=== PATIENT | male | born 1975 | race Two or more races ===

== ENCOUNTER 2024-08-04 06:10 | Emergency (ER) | payer OTHER ==
[~2024-08-04] VITALS: Ht 175.3 cm; Wt 105.5 kg
--- NOTE | 2024-08-04 06:49 | ED.PDOC ---
History of Present Illness HPI Comments 49 year old male presents to the ED with a chief complaint of headache onset 5 days. Patient states he began experiencing LT sided headache 5 days ago and has been persistent since. Patient has taken Tylenol with no relief of symptoms. Describes pain as a "muscle pulling", shooting pain. He also noticed LT arm is weak. Saw PCP yesterday (08/03/24), was told to go to ED due to symptoms. Denies any PMHx as well as chest pain, shortness of breath, numbness/tingling, nausea, vomiting, diarrhea, fall, injury. No other symptoms or modifying factors present at this time. Chief Complaint: Headache Time Seen by MD: 06:34 Reviewed Notes: Medications, Allergies Allergies: Coded Allergies: NO KNOWN ALLERGIES (Unverified , 08/04/24) Information Source: Patient Mode of Arrival: Ambulatory Severity: Moderate Timing: Days Duration: Since onset Prehospital treatment: Pain Meds Past Medical History PAST MEDICAL HISTORY: Denies Surgical History: Denies all surgeries Family History Family History: Reviewed,noncontributory to illness, No family hx of Cancer, No family hx of DM, No family hx of Heart keshawn, No family hx of HTN, No family hx ofKidney keshawn, No family hx of Liver keshawn, No family hx of Lung keshawn, No family hx of Stroke Social History Smoker: Non-Smoker Alcohol: Denies ETOH Use Drugs: Denies Drug Use Lives In: Home Constitutional: denies: chills, diaphoresis, fatigue, fever, malaise, sweats, weakness, others EENTM: denies: blurred vision, double vision, ear bleeding, ear discharge, ear drainage, ear pain, ear ringing, eye pain, eye redness, hearing loss, mouth pain, mouth swelling, nasal discharge, nose bleeding, nose congestion, nose pain, photophobia, tearing, throat pain, throat swelling, voice changes, others Respiratory: denies: cough, hemoptysis, orthopnea, SOB at rest, shortness of breath, SOB with excertion, stridor, wheezing, others Cardiovascular: denies: chest pain, dizzy spells, diaphoresis, Dyspnea on exertion, edema, irregular heart beat, left arm pain, lightheadedness, palpitations, PND, syncope, others Gastrointestinal: denies: abdomen distended, abdominal pain, blood streaked bowels, constipated, diarrhea, dysphagia, difficulty swallowing, hematemesis, melena, nausea, poor appetite, poor fluid intake, rectal bleeding, rectal pain, vomiting, others Genitourinary: denies: burning, dysuria, flank pain, frequency, hematuria, incontinence, penile discharge, penile sore, pain, testicle pain, testicle swelling, urgency, others Neurological: reports: headache; denies: dizziness, fainting, left sided numbness, left sided weakness, numbness, paresthesia, pre-existing deficit, right sided numbness, right sided weakness, seizure, speech problems, tingling, tremors, weakness, others Musculoskeletal: denies: back pain, gout, joint pain, joint swelling, muscle pain, muscle stiffness, neck pain, others Integumetry: denies: bruises, change in color, change in hair/nails, dryness, laceration, lesions, lumps, rash, wounds, others Allergic/Immunocompromised: denies: Difficulty Healing, Frequent Infections, Hives, Itching, others Hematologic/Lymphatic: denies: anemia, blood clots, easy bleeding, easy bruising, swollen glands, others Endocrine: denies: excessive hunger, excessive sweating, excessive thirst, excessive urination, flushing, intolerance to cold, intolerance to heat, unexplained weight gain, unexplained weight loss, others Psychiatric: denies: anxiety, bipolar disorder, depression, hopeless, panic disorder, schizophrenia, sleepless, suicidal, others All Other Systems: Reviewed and Negative Physical Exam General Appearance: No Apparent Distress, Normal HEENT: Normal ENT Inspection, Pharynx Normal, TMs Normal Neck: Full Range of Motion, Non-Tender, Normal, Normal Inspection Respiratory: Chest Non-Tender, Lungs Clear, No Accessory Muscle Use, No Respiratory Distress, Normal Breath Sounds Cardiovascular: No Edema, No JVD, No Murmur, No Gallop, Normal Peripheral Pulses, Regular Rate/Rhythm Breast Exam: Deferred Gastrointestinal: No Organomegaly, Non Tender, No Pulsatile Mass, Normal Bowel Sounds, Soft Genitalia: Deferred Pelvic: Deferred Rectal: Deferred Extremities: No calf tenderness, Normal capillary refill, Normal inspection, Normal range of motion, Non-tender, No pedal edema Musculoskeletal : Apperance: Normal Neurologic: Alert, 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 Was a procedure done?: No Differential Dx Considerations may include: CVA, hypertensive emergency, atypical migraine, X-Ray, Labs, Meds, VS Vital Signs Date Time Temp Pulse Resp B/P (MAP) Pulse Ox O2 Delivery O2 Flow Rate FiO2 08/04/24 07:19 98.7 75 20 146/100 (115) 98 98.7 08/04/24 07:15 85 20 99 Room Air* 0 21 08/04/24 06:40 98.1 82 20 165/114 (131) 96 Lab Test 08/04/24 06:54 08/04/24 06:47 Range/Units White Blood Count 4.4 4.4-10.8 10^3/uL Red Blood Count 4.58 4.5-5.90 10^6/uL Hemoglobin 14.2 13.5-17.5 g/dL Hematocrit 40.4 L 41.0-53.0 % Mean Corpuscular Volume 88.3 80.0-100.0 fL Mean Corpuscular Hemoglobin 31.0 28.0-32.0 pg Mean Corpuscular Hemoglobin Concent 35.1 32.0-36.0 g/dL Red Cell Distribution Width 13.9 11.8-14.3 % Platelet Count 191 140-450 10^3/uL Mean Platelet Volume 7.6 6.9-10.8 fL Neutrophils (%) (Auto) 43.6 37.0-80.0 % Lymphocytes (%) (Auto) 45.1 10.0-50.0 % Monocytes (%) (Auto) 9.5 0.0-12.0 % Eosinophils (%) (Auto) 0.9 0.0-7.0 % Basophils (%) (Auto) 0.9 0.0-2.0 % Neutrophils # (Auto) 1.9 1.6-8.6 10 ^3/uL Lymphocytes # (Auto) 2.0 0.4-5.4 10 ^3/uL Monocytes # (Auto) 0.4 0-1.3 10 ^3/uL Eosinophils # (Auto) 0 0-0.8 10 ^3/uL Basophils # (Auto) 0 0-0.2 10 ^3/uL Nucleated Red Blood Cells 0.1 % Sodium Level 140 136-145 mmol/L Potassium Level 3.5 3.5-5.1 mmol/L Chloride Level 107 98-107 mmol/L Carbon Dioxide Level 26 20-31 mmol/L Anion Gap 7 5-15 Blood Urea Nitrogen 12 9-23 mg/dL Creatinine 1.12 0.700-1.30 mg/dL Glomerular Filtration Rate Calc 81 >90 mL/min BUN/Creatinine Ratio 10.7 10.0-20.0 Serum Glucose 118 H 74-106 mg/dL Calcium Level 9.3 8.7-10.4 mg/dL Troponin I High Sensitivity < 3 L </=54 ng/L B-Type Natriuretic Peptide 22.99 0-100 pg/mL Urine Color Pending Urine Clarity Pending Urine pH Pending Urine Specific [place] Pending Urine Protein Pending Urine Ketones Pending Urine Blood Pending Urine Nitrite Pending Urine Bilirubin Pending Urine Urobilinogen Pending Urine Leukocyte Esterase Pending Urine RBC Pending Urine Microscopic WBC Pending Urine Squamous Epithelial Cells Pending Urine Bacteria Pending Urine Glucose Pending Urine Opiates Screen Pending Urine Fentanyl Screen Pending Urine Barbiturates Screen Pending Urine Phencyclidine Screen Pending Urine Amphetamines Screen Pending Urine Benzodiazepines Screen Pending Urine Cocaine Screen Pending Urine Cannabinoids Screen Pending Current Medications Medications (Trade) Dose Ordered Sig/Tamera Route Start Time Stop Time Status Last Admin Sodium Chloride 1,000 ml @ 1,000 mls/hr Q1H ONCE IV 08/04/24 06:45 08/04/24 07:44 DC 08/04/24 07:16 Metoclopramide HCl (Reglan Injection) 10 mg ONCE ONCE IV 08/04/24 06:45 08/04/24 06:46 DC 08/04/24 07:19 Acetaminophen (Tylenol Tablet) 650 mg ONCE ONCE PO 08/04/24 06:45 08/04/24 06:46 DC 08/04/24 07:[address] [address] Ph: [phone] DIAGNOSTIC IMAGING Diagnostic Imaging Report : [id number] Signed PATIENT: ADRIAN ELENA ACCT: [id number] UNIT: [id number] : 1975 LOC: ER ROOM / BED: / AGE / SEX: 49 / M ADM STATUS: REG ER SERVICE 7 ORDERING PHYSICIAN: DANELLE PAULA MD PROCEDURE(s): CXRP - CHEST PORTABLE REASON: headache, left arm weakness ORDER NUMBER(s): [id number], ACCESSION NUMBER(s): [id number] CLINICAL INFORMATION: 49 years old, Male; headache, left arm weakness. TECHNIQUE: Single AP portable chest radiograph was obtained. COMPARISON: None FINDINGS: Lungs: Mild perihilar interstitial opacities no focal consolidation. Cardiac: Heart size is within normal limits. Pulmonary vasculature: Prominence of the pulmonary vasculature. Mediastinum/renetta: Unremarkable. Bones: No acute osseous abnormality identified. Other: No other significant findings. IMPRESSION: Prominence of the pulmonary vasculature and mild perihilar interstitial opacities, may be due to pulmonary vascular congestion in the appropriate clinical setting. ATED BY: VINOD MACIAS DO DICTATED DATE/TIME: 08/04/24737 SIGNED BY: VINOD MACIAS DO SIGNED DATE/TIME: 08/04/24737 CC: [place] [id number] Ph: [phone] DIAGNOSTIC IMAGING Diagnostic Imaging Report : [id number] Signed PATIENT: ADRIAN ELENA ACCT: [id number] UNIT: [id number] : 1975 LOC: ER ROOM / BED: / AGE / SEX: 49 / M ADM STATUS: REG ER SERVICE 7 ORDERING PHYSICIAN: DANELLE PAULA MD PROCEDURE(s): HWOCT - HEAD WITHOUT CONTRAST REASON: headache, left arm weakness ORDER NUMBER(s): [id number], ACCESSION NUMBER(s): [id number] CLINICAL INFORMATION: 49 years old, Male; headache, left arm weakness. TECHNIQUE: Axial imaging was obtained through the brain without contrast. Coronal and sagittal reformatted images were obtained, reviewed, and stored. Images were reviewed in brain and bone windows. All CT scans at this medical facility are performed using dose modulation techniques as appropriate to a performed exam including the following: Automated exposure control was utilized; adjustment of the MA and/or KV according to patient size; and use of iterative reconstruction technique. CTDIvol = 67.64 mGy DLP = 1196.13 mGy-cm COMPARISON: None FINDINGS: There is no acute intracranial hemorrhage. No mass effect or midline shift. The ventricles and sulci are within normal limits in size for age. Basal cisterns are patent. The calvarium is unremarkable. [id number] mucosal thickening of the paranasal sinuses IMPRESSION: No CT evidence of acute intracranial abnormality. ATED BY: VINOD MACIAS DO DICTATED DATE/TIME: 08/04/24747 SIGNED BY: VINOD MACIAS DO SIGNED DATE/TIME: 08/04/24747 CC: Time of 1ST Reevaluation: 07:04 Reevaluation 1ST: Unchanged Patient Education/Counseling: Diagnosis, Treatment, Prognosis Family Education/Counseling: No Family Present Additional Information The following tests were ordered, and results were reviewed by me: BNP, BMP, CBC, DRUG SCREEN, TROP, UA, XY CHEST, CT HEAD WITHOUT CONTRAST,EKG I reviewed and agreed with the following test results read by other providers: XY CHEST, CT HEAD WITHOUT CONTRAST. I discussed treatment and results with medical personnel and: patient Departure 1 Departure Time of Disposition: 08:42 (Patient presented with hypertension and symptoms concerning for hypertensive emergency. Patient is receiving iv blood pressure medications requiring intensive monitoring. Data: 1. I ordered and reviewed the result of at least 3 labs including a CBC, BMP, and Urinalysis. 2. I ind ependently interpreted the following tests: CT Brain: Which appears benign. EKG which is Normal Sinus RhythmRisk:This patient has a high risk of morbidity due to further diagnostic testing or treatment and may suffer from an acute cardiac disorder. Workup reveals hypertensive emergency and patient should be admitted for further workup. and possible expert consultation. ) Impression: Primary Impression: Hypertensive emergency Additional Impression: Migraine Qualified Codes: G43.119 - Migraine with aura, intractable, without status migrainosus Disposition: ADMITTED INPATIENT Admit to: Med Surg Condition: Serious Critical Care Note Critical Care Time?: Yes Critical care comment: Hypertensive emergency Authorized and Performed by: Danelle Paula MD Total critical care time: Approximately 38 minutes Due to a high probability of clinically significant, life threatening deterioration, the patient required my highest level of preparedness to intervene emergently and I personally spent this critical care time directly and personally managing the patient. This critical care time included obtaining a history; examining the patient; pulse oximetry; ordering and review of studies; arranging urgent treatment with development of a management plan; evaluation of patient's response to treatment; frequent reassessment; and, discussions with other providers. This critical care time was performed to assess and manage the high probability of imminent, life-threatening deterioration that could result in multi-organ failure. It was exclusive of separately billable procedures and treating other patients and teaching time. Please see my other sections and the rest of the note for further information on patient assessment and treatment. Stability Stability form required: No I personally scribed for DANELLE PAULA MD ([email or web address]) on 08/04/24 at 06:49. Electronically submitted by Nehal Baer ([email or web address]). I personally scribed for DANELLE PAULA MD ([email or web address]) on 08/04/24 at 06:52. Electronically submitted by Nehal Baer ([email or web address]). I personally scribed for DANELLE PAULA MD ([email or web address]) on 08/04/24 at 08:11. Electronically submitted by Nehal Baer ([email or web address]). DANELLE PAULA MD Aug 04, 2024 06:49
[2024-08-04 07:15] VITALS: PULSE 85; RESP 20; O2SAT 99
[2024-08-04] MEDS: SODIUM CHLORIDE 0.9% 1,000 ML IV ONE (07:16)
[2024-08-04 07:18] LABS: Chloride 107 mmol/L (98-107); Sodium 140 mmol/L (136-145)
[2024-08-04 07:19] LABS: Anion Gap 7 (5-15); Basophils # (auto) 0 10 ^3/uL (0-0.2); Basophils % (auto) 0.9 % (0.0-2.0); Calcium 9.3 mg/dL (8.7-10.4); Carbon Dioxide 26 mmol/L (20-31); Eosinophils # (auto) 0 10 ^3/uL (0-0.8); Eosinophils % (auto) 0.9 % (0.0-7.0); Hematocrit 40.4 % (41.0-53.0); Hemoglobin 14.2 g/dL (13.5-17.5); Lymphocytes % (auto) 45.1 % (10.0-50.0); Mean Corpuscular Hgb Conc. 35.1 g/dL (32.0-36.0); Mean Corpuscular Volume 88.3 fL (80.0-100.0); Monocytes # (auto) 0.4 10 ^3/uL (0-1.3); Monocytes % (auto) 9.5 % (0.0-12.0); Neutrophils # (auto) 1.9 10 ^3/uL (1.6-8.6); Neutrophils % (auto) 43.6 % (37.0-80.0); Nucleated Red Blood Cells % 0.1 %; Platelet Count (auto) 191 10^3/uL (140-450); Red Blood Cells 4.58 10^6/uL (4.5-5.90); Red Cell Distribution Width 13.9 % (11.8-14.3); White Blood Cell 4.4 10^3/uL (4.4-10.8)
[2024-08-04] MEDS: ACETAMINOPHEN 325 MG TAB PO ONE (07:19)
[2024-08-04] MEDS: METOCLOPRAMIDE HCL 5MG/ml INJ 2ml VIAL IV ONE (07:19)
[2024-08-04 07:22] LABS: Potassium 3.5 mmol/L (3.5-5.1)
[2024-08-04 07:24] LABS: Glucose 118 mg/dL (74-106)
[2024-08-04 07:29] LABS: BUN/Creatinine Ratio 10.7 (10.0-20.0); Blood Urea Nitrogen 12 mg/dL (9-23)
--- NOTE | 2024-08-04 07:41 | DVH ---
CLINICAL INFORMATION: 49 years old, Male; headache, left arm weakness. TECHNIQUE: Single AP portable chest radiograph was obtained. COMPARISON: None FINDINGS: Lungs: Mild perihilar interstitial opacities no focal consolidation. Cardiac: Heart size is within normal limits. Pulmonary vasculature: Prominence of the pulmonary vasculature. Mediastinum/renetta: Unremarkable. Bones: No acute osseous abnormality identified. Other: No other significant findings. IMPRESSION: Prominence of the pulmonary vasculature and mild perihilar interstitial opacities, may be due to pulm onary vascular congestion in the appropriate clinical setting.
--- NOTE | 2024-08-04 07:51 | DVH ---
CLINICAL INFORMATION: 49 years old, Male; headache, left arm weakness. TECHNIQUE: Axial imaging was obtained through the brain without contrast. Coronal and sagittal reform atted images were obtained, reviewed, and stored. Images were reviewed in brain and bone windows. Al l CT scans at this medical facility are performed using dose modulation techniques as appropriate to a performed exam including the following: Automated exposure control was utilized; adjustment of the MA and/or KV according to patient size; and use of iterative reconstruction technique. CTDIvol = 67.6 4 mGy DLP = 1196.13 mGy-cm COMPARISON: None FINDINGS: There is no acute intracranial hemorrhage. No mass effect or midline shift. The ventricles and sulci are within normal limits in size for age. Basal cisterns are patent. The calvarium is unre markable. [id number] mucosal thickening of the paranasal sinuses IMPRESSION: No CT evidence of acute intracranial abnormality.
[2024-08-04 08:29] LABS: Urine Bacteria None Seen /hpf (None Seen)
[2024-08-04 08:45] LABS: Urine Blood Negative /uL (Negative); Urine Clarity Clear (Clear); Urine Color Light-Yellow (Yellow); Urine Protein, UAD Negative (Negative); Urine Specific Gravity 1.013 (1.001-1.035); Urine Squamous Epithelial Cell FEW /hpf (<5); Urine Urobilinogen Normal (Negative); Urine WBC 1 /HPF (0-3); Urine pH 5.5 (5.0-9.0)
[2024-08-04 08:46] LABS: Cannabinoid Screen, Urine Pos (NEGATIVE)
[2024-08-04 08:47] LABS: Opiate Scree,Urine Neg (NEGATIVE)
[2024-08-04 08:48] LABS: Amphetamine Screen, Urine Neg (NEGATIVE); Barbiturate Scree,Urine Neg (NEGATIVE); Benzodiazephine Screen, Urine Neg (NEGATIVE); Cocaine Screen, Urine Neg (NEGATIVE); Phencyclidine Screen, Urine Neg (NEGATIVE)
[2024-08-04] MEDS: hydrALAZINE HCL 20 MG/ML VL IV ONE (09:13)
[2024-08-04 09:54] VITALS: BP 158/110; PULSE 80; RESP 16; TEMP 97.7; O2SAT 98
[2024-08-04] MEDS: amLODIPine BESYLATE 5 MG TAB PO ONE (10:21)
== END 2024-08-04 10:23 | disposition left against medical advice (07) ==
LOC: ER 06:10
DX: G43.909 Migraine, unspecified, not intractable, without status migrainosus (principal); I16.1 Hypertensive emergency; Z79.899 Other long term (current) drug therapy
CPT/HCPCS: 36415; 70450; 71045; 80048; 80307; 81001; 83880; 84484; 85025; 96361; 96374; 96375; 99285; J0360; J2765; J7040